=== PATIENT | female | born 1995 | race Asian ===

== ENCOUNTER 2020-12-15 13:56 | Inpatient (IN) | payer OTHER ==
[2020-12-15] MEDS ORDERED: METHYLERGONOVINE MALEATE 0.2 MG/1 ML AMP IM PRN (15:14)
[2020-12-15] MEDS ORDERED: BENZOCAINE 20% 57 GM BOTTLE TP PRN (15:14)
[2020-12-15] MEDS ORDERED: BISACODYL 10 MG SUPP.RECT RC PRN (15:14)
[2020-12-15] MEDS ORDERED: WITCH HAZEL 50% (TUCKS) 40 PAD/JAR PAD TP PRN (15:14)
[2020-12-15] MEDS ORDERED: BENZOCAINE 28 GM HEMORRHOIDAL OINTMENT TP PRN (15:14)
[2020-12-15] MEDS ORDERED: OXYTOCIN 20 UNITS in 0.9% NS 20 UNIT/1,000 ML INFUS.BAG IV SCH (15:15)
[2020-12-15] MEDS: FERROUS SO4 325 MG TABLET (FP) PO SCH (18:09)
[2020-12-15] MEDS: ACETAMINOPHEN 325 MG TABLET (FP) PO PRN (23:28)
[2020-12-15] MEDS: IBUPROFEN 600 MG TABLET (FP) PO PRN (23:28)
[2020-12-16 08:11] LABS: BASO % 0.4 % (0-2.0); EOS % 0.5 % (0-4.5); HEMATOCRIT 35.3 % (32.4-45.2); HEMOGLOBIN 11.7 GM/dL (10.7-15.3); LYMPH % 23.5 % (8-40); MCH 28.5 pg (25.7-33.7); MCHC 33.2 g/dl (32.0-36.0); MEAN CELL VOLUME 85.7 fl (80-96); MEAN PLT VOLUME 8.3 fl (7.5-11.1); MONO % 7.1 % (3.8-10.2); NEUT % 68.5 % (42.8-82.8); PLATELET COUNT 160 K/MM3 (134-434); RBC 4.12 M/mm3 (3.60-5.2); RDW 13.4 % (11.6-15.6); WHITE BLOOD COUNT 10.8 K/mm3 (4.0-10.0)
[2020-12-16] MEDS: FERROUS SO4 325 MG TABLET (FP) PO SCH ×2 (09:12→17:35)
[2020-12-16] MEDS: PRENATAL VITAMINS W/ FOLIC ACID TABLET (FP) PO SCH (09:12)
[2020-12-16] MEDS: ACETAMINOPHEN 325 MG TABLET (FP) PO PRN (14:51)
[2020-12-16] MEDS: IBUPROFEN 600 MG TABLET (FP) PO PRN (14:51)
[2020-12-16] MEDS ORDERED: SENNOSIDES/DOCUSATE COMBO (SENNA PLUS) TABLET (UD) PO PRN (22:00)
[2020-12-17] MEDS: FERROUS SO4 325 MG TABLET (FP) PO SCH ×2 (08:49→17:30)
[2020-12-17] MEDS: PRENATAL VITAMINS W/ FOLIC ACID TABLET (FP) PO SCH (09:03)
[2020-12-17 10:06] VITALS: BP 122/74; PULSE 106; TEMP 97.8
[2020-12-17] MEDS: IBUPROFEN 600 MG TABLET (FP) PO PRN (10:41)
[2020-12-17] MEDS: ACETAMINOPHEN 325 MG TABLET (FP) PO PRN (10:42)
== END 2020-12-17 18:15 | disposition home or self-care (01) | DRG 560 ==
LOC: JLDR 13:56 → J3W 16:45
PROVIDERS: ADMIT Obstetrics & Gynecology; ATTEND Obstetrics & Gynecology
PROC: 10E0XZZ Delivery of Products of Conception, External Approach (ICD-10-PCS; principal; 2020-12-15)
DX: O80 Encounter for full-term uncomplicated delivery (principal); Z37.0 Single live birth; Z3A.39 39 weeks gestation of pregnancy
CPT/HCPCS: 36415; 59025; 59409; 80048; 85025; 85610; 85730; 86780; 86850; 86900; 86901; C9803; G0463-25; U0003; U0005